=== PATIENT | female | born 1990 | race Caucasian/White ===

== ENCOUNTER 2022-05-31 13:25 | Emergency (ER) | payer BC ==
[~2022-05-31] VITALS: Ht 157.5 cm; Wt 114.2 kg
[2022-05-31 13:26] VITALS: BP 136/87
[2022-05-31] MEDS ORDERED: CYCL-707 PO (13:37)
[2022-05-31] MEDS ORDERED: diazePAM 10 MG TAB PO ONE (15:40)
[2022-05-31] MEDS ORDERED: KETOROLAC 60MG 2ML VIAL IM ONE (17:00)
[2022-05-31] MEDS ORDERED: METH-1164 PO (17:25)
== END 2022-05-31 17:35 | disposition home or self-care (01) ==
LOC: M ED 15:12
DX: M51.16 Intervertebral disc disorders with radiculopathy, lumbar region (principal); M43.06 Spondylolysis, lumbar region; M19.90 Unspecified osteoarthritis, unspecified site; Z90.721 Acquired absence of ovaries, unilateral
CPT/HCPCS: 72131; 96372; 99282; J1885

== ENCOUNTER 2022-06-23 03:14 | Emergency (ER) | payer BC ==
[~2022-06-23] VITALS: Ht 157.5 cm; Wt 114.1 kg
[~2022-06-23 03:14] MED LIST: CYCL-707 PO; METH-1164 PO
[2022-06-23 04:05] LABS: BASO % 0.3 % (0.0-1.0); EOS # 0.1 10^3/uL (0.0-0.5); EOS % 1.1 % (0.0-3.0); HEMATOCRIT 40.3 % (36.0-47.0); HEMOGLOBIN 12.8 g/dl (12.0-15.5); LYMPH # 1.8 10^3/uL (1.5-5.0); MEAN CORPUSCULAR HEMOGLOBIN 26.9 pg (27.0-33.0); MEAN CORPUSCULAR HGB CONC 31.8 g/dl (32.0-36.5); MEAN CORPUSCULAR VOLUME 84.7 fl (80.0-96.0); MONO # 0.6 10^3/uL (0.0-0.8); MONO % 5.9 % (2.0-8.0); NEUTROPHILS # 7.6 10^3/uL (1.5-8.5); NEUTROPHILS % 74.2 % (36.0-66.0); PLATELET COUNT, AUTOMATED 310 10^3/uL (150-450); RED BLOOD COUNT 4.76 10^6/uL (4.00-5.40); WHITE BLOOD COUNT 10.2 10^3/uL (4.0-10.0)
[2022-06-23 04:52] LABS: BLOOD UREA NITROGEN 10 MG/DL (9-23); CALCIUM LEVEL 9.1 MG/DL (8.5-10.1); CARBON DIOXIDE LEVEL 22 MMOL/L (20-31); CHLORIDE LEVEL 110 MMOL/L (98-107); CREATININE FOR GFR 0.92 MG/DL (0.55-1.30); GLOMERULAR FILTRATION RATE > 60.0 (>60); GLUCOSE, FASTING 100 MG/DL (60-100); POTASSIUM SERUM 4.2 MMOL/L (3.5-5.1); SODIUM LEVEL 143 MMOL/L (136-145)
[2022-06-23] MEDS ORDERED: ONDANSETRON 4MG 2ML VIAL IV ONE (06:05)
[2022-06-23] MEDS ORDERED: ISOVUE-370 76% 100ML VIAL As Ordered ONE (06:09)
[2022-06-23] MEDS: MORPHINE 4 MG/ML 1ML VIAL IV PRN ×2 (06:30→08:37)
[2022-06-23] MEDS ORDERED: PERCOCET 5MG/325MG TAB PO ONE (09:35)
[2022-06-23] MEDS ORDERED: metroNIDAZOLE (FLAGYL) 500MG TABLET PO ONE (09:35)
[2022-06-23] MEDS ORDERED: CIPROFLOXACIN 500MG TABLET PO ONE (09:35)
[2022-06-23] MEDS ORDERED: CIPR-249 PO (09:40)
[2022-06-23] MEDS ORDERED: PERC5TAB12 PO (09:40)
[2022-06-23] MEDS ORDERED: METR-265 PO (09:40)
[2022-06-23] MEDS ORDERED: ONDA4TAB6 PO (09:40)
[2022-06-23 09:44] VITALS: BP 136/78
== END 2022-06-23 11:08 | disposition home or self-care (01) ==
LOC: M ED 03:14
DX: K57.32 Diverticulitis of large intestine without perforation or abscess without bleeding (principal); N83.292 Other ovarian cyst, left side; Z87.42 Personal history of other diseases of the female genital tract; Z79.2 Long term (current) use of antibiotics; Z79.899 Other long term (current) drug therapy
CPT/HCPCS: 74177; 80048; 81000; 81015; 84702; 85025; 87086; 96374; 96375; 96376; 99284; J2270; J2405

== ENCOUNTER → 2022-07-01 | Outpatient (CLI) | payer BC ==
[~2022-07-01] MED LIST changes: +CIPR-249 PO; +METR-265 PO; +ONDA4TAB6 PO; +PERC5TAB12 PO
== END ==
LOC: M PLAIMG 10:02
PROVIDERS: ATTEND Orthopaedic Surgery
DX: M43.17 Spondylolisthesis, lumbosacral region (principal); M51.36 Other intervertebral disc degeneration, lumbar region; M51.26 Other intervertebral disc displacement, lumbar region; M48.061 Spinal stenosis, lumbar region without neurogenic claudication

== ENCOUNTER 2022-10-06 16:29 | Emergency (ER) | payer BC ==
[~2022-10-06] VITALS: Ht 160 cm; Wt 118.6 kg
[2022-10-06 16:30] VITALS: BP 163/92
[2022-10-06 19:45] LABS: BASO % 0.3 % (0.0-1.0); EOS # 0.1 10^3/uL (0.0-0.5); EOS % 0.4 % (0.0-3.0); HEMATOCRIT 42.5 % (36.0-47.0); HEMOGLOBIN 13.6 g/dl (12.0-15.5); LYMPH # 2.6 10^3/uL (1.5-5.0); LYMPH % 21.7 % (24.0-44.0); MEAN CORPUSCULAR HEMOGLOBIN 26.8 pg (27.0-33.0); MEAN CORPUSCULAR VOLUME 83.8 fl (80.0-96.0); MONO # 0.7 10^3/uL (0.0-0.8); MONO % 5.8 % (2.0-8.0); NEUTROPHILS # 8.4 10^3/uL (1.5-8.5); NEUTROPHILS % 71.3 % (36.0-66.0); PLATELET COUNT, AUTOMATED 364 10^3/uL (150-450); RED BLOOD COUNT 5.07 10^6/uL (4.00-5.40); WHITE BLOOD COUNT 11.8 10^3/uL (4.0-10.0)
[2022-10-06 20:20] LABS: LIPASE 45 U/L (12-53)
[2022-10-06 20:22] LABS: ALBUMIN 3.9 G/DL (3.2-5.2); ALKALINE PHOSPHATASE 56 U/L (46-116); ALT/SGPT 19 U/L (7.0-40); AST/SGOT < 8 U/L (<34); BILIRUBIN,DIRECT 0.5 MG/DL (<0.4); BILIRUBIN,TOTAL 1.4 MG/DL (0.3-1.2); BLOOD UREA NITROGEN 16 MG/DL (9-23); CALCIUM LEVEL 8.9 MG/DL (8.5-10.1); CARBON DIOXIDE LEVEL 22 MMOL/L (20-31); CHLORIDE LEVEL 107 MMOL/L (98-107); CREATININE FOR GFR 0.79 MG/DL (0.55-1.30); GLOMERULAR FILTRATION RATE > 60.0 (>60); GLUCOSE, FASTING 78 MG/DL (60-100); POTASSIUM SERUM 4.2 MMOL/L (3.5-5.1); SODIUM LEVEL 139 MMOL/L (136-145); TOTAL PROTEIN 7.2 G/DL (5.7-8.2)
== END 2022-10-07 01:05 | disposition left against medical advice (07) ==
LOC: M ED 16:29
DX: Z53.21 Procedure and treatment not carried out due to patient leaving prior to being seen by health care provider (principal)